=== PATIENT | female | born 1940 | race Caucasian/White ===

== ENCOUNTER 2020-12-13 11:23 | Day surgery (SDC) | payer MEDICARE, BC ==
[2020-12-13] VITALS (259 sets, daily range): BP systolic 112–184; BP diastolic 53–79; PULSE 57–67; TEMP 97.8–98.7; O2SAT 94–100
[~2020-12-13] VITALS: Ht 157.5 cm; Wt 79.9 kg
[2020-12-13] MEDS ORDERED: PRESERVISION1 SGL PO (11:48)
[2020-12-13] MEDS ORDERED: LUTEIN20 M1 PO (11:49)
[2020-12-13] MEDS ORDERED: HCTZ 25MG TAB25 MG PO (11:49)
[2020-12-13] MEDS ORDERED: LEVOXYL0.1 MG PO (11:50)
[2020-12-13] MEDS ORDERED: CORDARONE200 MG/TAB PO (11:50)
[2020-12-13] MEDS ORDERED: TOPROL XL 25MG25 MG PO (11:51)
[2020-12-13] MEDS ORDERED: COUMADIN 2MG2 MG/TAB PO (11:52)
[2020-12-13] MEDS ORDERED: ZESTRIL 10MG10 MG PO (11:52)
[2020-12-13] MEDS ORDERED: B-121000 MCG PO (11:53)
[2020-12-13] MEDS ORDERED: AMBIEN 5MG TABLE5 MG PO (11:53)
[2020-12-13] MEDS ORDERED: D3-5050000 IU PO (11:54)
[2020-12-13 12:22] LABS: HEMATOCRIT 38.8 % (37.0-47.0); HEMOGLOBIN 12.8 g/dl (12.5-16.0); MEAN CELL VOLUME 97 fl (80.0-100.0); MEAN CORPUSCULAR HEMOGLOBIN 32 pg (27.0-31.0); MEAN CORPUSCULAR HGB CONC 33 g/dl (33.0-37.0); MEAN PLATELET VOLUME 9.6 fl (7.4-10.4); PLATELET COUNT 219 K/mm3 (130-400); RED BLOOD COUNT 3.99 M/mm3 (4.10-5.30); REDCELL DISTRIBUTION WIDTH-CV 12.9 % (11.5-14.5)
[2020-12-13 12:30] LABS: INR 1.3 (0.8-3.0)
[2020-12-13 12:32] LABS: PARTIAL THROMBOPLASTIN TIME 30.9 SECONDS (26.0-37.0)
--- NOTE | 2020-12-13 12:51 | NUR ---
SEE MERGE FOR ALL MEDICATION ADMINISTRATION TIMES AND DOSAGES.INTRA\POST SEDATION ASSESSMENT.
--- NOTE | 2020-12-13 19:42 | NUR ---
RESTING COMFORT ABLE IN BED/ DENIES PAIN/ HAS NO COMPLAINTS
--- NOTE | 2020-12-13 20:09 | NUR ---
VERY PLEASENT/ DENIES DISCOMFORT, SMILES/
[2020-12-14] VITALS (333 sets, daily range): BP systolic 119–133; BP diastolic 58–66; PULSE 52–64; TEMP 97.4–98.4; O2SAT 94–100
[2020-12-14 05:15] LABS: BASO # 0.1 K/mm3 (0.0-0.2); BASO % 0.6 % (0.0-2.0); EOS # 0.2 K/mm3 (0.0-0.7); EOS % 2.2 % (0-4.0); GRAN # 4.8 K/mm3 (1.4-6.5); GRAN % 61.8 % (42.2-75.2); HEMATOCRIT 38.9 % (37.0-47.0); HEMOGLOBIN 13.2 g/dl (12.5-16.0); LYMPH % 25.8 % (20.0-51.0); MEAN CELL VOLUME 96 fl (80.0-100.0); MEAN CORPUSCULAR HEMOGLOBIN 33 pg (27.0-31.0); MEAN CORPUSCULAR HGB CONC 34 g/dl (33.0-37.0); MEAN PLATELET VOLUME 9.3 fl (7.4-10.4); MONO # 0.7 K/mm3 (0.1-0.6); MONO % 9.2 % (1.7-9.3); PLATELET COUNT 210 K/mm3 (130-400); RED BLOOD COUNT 4.04 M/mm3 (4.10-5.30); REDCELL DISTRIBUTION WIDTH-CV 12.7 % (11.5-14.5)
[2020-12-14 05:32] LABS: CALCIUM 9.9 mg/dL (8.4-10.2); CREATININE, serum 0.91 mg/dL (0.57-1.11); POTASSIUM 3.6 mmol/L (3.5-4.5)
--- NOTE | 2020-12-14 07:20 | NUR ---
RECEIVED REPORT FROM NAHOMY DOZIER. PT UP TO TOILET BY SELF. STEADY GAIT NOTED. PT ON RA, DENIES ANY CP/PRESSURE. VSS. PT REPOSITIONS SELF BACK INTO BED. CALL LIGHT WITHIN REACH. SEE GTT FLOWSHEET.
--- NOTE | 2020-12-14 09:20 | NUR ---
Filter Filler met with patient to complete initial intake. Patient lives in [facility] ([place]) with her , Constantin who she reports has dementia. Patient sees Dr. Maguire for primary care and obtains medications from [facility] pharmacy with no difficulties. Patient does not use any DME and is independent with ADLS. Patient reports she has a will at home. Patient has her children Tegan (ph#[phone]) and Nav (ph#[phone]) listed as her contacts. Patient plans to return home upon discharge. Discharge Plan: Home
[2020-12-14] MEDS ORDERED: LIPITOR 40MG TA40 MG PO (10:45)
[2020-12-14] MEDS ORDERED: BRILINTA90 MG PO (10:45)
[2020-12-14] MEDS ORDERED: ASPIRIN E.C. 8181 MG PO (10:46)
[2020-12-19 16:02] VITALS: BP 128/66; PULSE 52; TEMP 98
== END 2020-12-14 11:34 | disposition home or self-care (01) ==
LOC: COL.CAR 11:23 → ICU 15:29 → COL.CAR 12-14 11:34
PROVIDERS: Internal Medicine Cardiovascular Disease
DX: I25.110 Atherosclerotic heart disease of native coronary artery with unstable angina pectoris (principal); I11.9 Hypertensive heart disease without heart failure; I48.0 Paroxysmal atrial fibrillation; I08.1 Rheumatic disorders of both mitral and tricuspid valves; E78.2 Mixed hyperlipidemia; E03.9 Hypothyroidism, unspecified; Z79.890 Hormone replacement therapy; Z79.899 Other long term (current) drug therapy; Z79.01 Long term (current) use of anticoagulants
CPT/HCPCS: OP; C1725; C1769; C1874; C1887; C9600; J0360; J1644; J2250; J3010; J7050; Q9967

== ENCOUNTER 2022-04-25 21:08 | Inpatient (IN) | payer MEDICARE, BC ==
[~2022-04-25] VITALS: Ht 154.9 cm; Wt 83.5 kg
[~2022-04-25 21:08] MED LIST: AMBIEN 5MG TABLE5 MG PO; ASPIRIN E.C. 8181 MG PO; B-121000 MCG PO; BRILINTA90 MG PO; CORDARONE200 MG/TAB PO; COUMADIN 2MG2 MG/TAB PO; D3-5050000 IU PO; HCTZ 25MG TAB25 MG PO; LEVOXYL0.1 MG PO; LIPITOR 40MG TA40 MG PO; LUTEIN20 M1 PO; PRESERVISION1 SGL PO; TOPROL XL 25MG25 MG PO; ZESTRIL 10MG10 MG PO
[2022-04-25] MEDS ORDERED: HCTZ12.5TAB PO (21:10)
[2022-04-25] MEDS ORDERED: PLAVIX 75MG TAB75 MG PO (21:10)
[2022-04-25] MEDS ORDERED: NORVASC 5MG5 MG/TAB PO (21:11)
[2022-04-25] MEDS ORDERED: SYNTHROID0.1 MG/TAB PO (21:11)
[2022-04-25] MEDS ORDERED: PRINIVIL20 MG PO (21:11)
[2022-04-25] MEDS ORDERED: VITAMIN D 50,1.25 MG PO (21:11)
--- NOTE | 2022-04-25 22:51 | NUR ---
pt admitted to room. arrived by personal vehicle w daughter. ambulated from wheelchair to bed, steady gait. called blaine to notify of pts arrival.
[2022-04-25 22:53] VITALS: BP 146/59; PULSE 67; TEMP 98.1
[2022-04-26] VITALS (17 sets, daily range): BP systolic 102–143; BP diastolic 40–70; PULSE 58–70; TEMP 97.5–99.5
[2022-04-26 00:24] LABS: COLLECTION METHOD CLEAN CATCH
[2022-04-26 00:36] LABS: SQUAMOUS EPITHELIAL 0-2 /hpf (0-10); URINE APPEARANCE Clear (CLEAR/HAZY); URINE BACTERIA None Seen /hpf (NONE SEEN); URINE COLOR Yellow (YELLOW); URINE RBC 0-2 /hpf (0-2)
[2022-04-26 00:38] LABS: PH 6.5 (5.0-8.5); URINE BLOOD Negative (NEGATIVE); URINE GLUCOSE Negative (NEGATIVE); URINE KETONE Negative (NEGATIVE); URINE NITRATE Negative (NEGATIVE); URINE PROTEIN(semi-quant) Negative (NEGATIVE); URINE UROBILINOGEN 0.2 E.U/dL (0.2-1.0)
--- NOTE | 2022-04-26 00:50 | NUR ---
pt down for ct scan w Moise
--- NOTE | 2022-04-26 02:00 | NUR ---
blood transfusion started. vss.
--- NOTE | 2022-04-26 02:17 | NUR ---
pt tolerated first 15 minutes of transfusion
--- NOTE | 2022-04-26 04:45 | NUR ---
pt tolerated blood transfusion without difficulty. order placed to recheck H&H in one hour
[2022-04-26 06:37] LABS: BASO # 0.1 K/mm3 (0.0-0.2); EOS # 0.2 K/mm3 (0.0-0.7); EOS % 2.6 % (0.0-4.0); GRAN % 65.8 % (42.2-75.2); LYMPH # 1.1 K/mm3 (1.2-3.4); LYMPH % 17.3 % (20.0-51.0); MEAN CELL VOLUME 93 fl (80.0-100.0); MEAN CORPUSCULAR HGB CONC 33 g/dl (33.0-37.0); MEAN PLATELET VOLUME 9.1 fl (7.4-10.4); MONO # 0.8 K/mm3 (0.1-0.6); MONO % 12.5 % (1.7-9.3); PLATELET COUNT 233 K/mm3 (130-400); RED BLOOD COUNT 2.77 M/mm3 (4.10-5.30); REDCELL DISTRIBUTION WIDTH-CV 15.5 % (11.5-14.5)
[2022-04-26 06:40] LABS: HEMATOCRIT 25.8 % (37.0-47.0); HEMOGLOBIN 8.5 g/dl (12.5-16.0); MEAN CORPUSCULAR HEMOGLOBIN 31 pg (27-31)
[2022-04-26 06:59] LABS: CALCIUM 8.5 mg/dL (8.4-10.2); CREATININE, serum 1.06 mg/dL (0.57-1.11); POTASSIUM 3.9 mmol/L (3.5-4.5)
--- NOTE | 2022-04-26 07:10 | NUR ---
called dr reynoso on consult. wants to keep pt npo and plans to do an EGD at 1530 today.
--- NOTE | 2022-04-26 07:12 | NUR ---
SCHEDULING CALLED. NO ANSWER. VOICEMAIL LEFT FOR CALL BACK, EXTENSION OF THIS RN LEFT.
--- NOTE | 2022-04-26 07:14 | NUR ---
RASHID CALLED AND INFORMED OF DR ARMANDO WANTING TO DO AN EGD FOR THIS PATIENT AT 1530 TODAY. RASHID NURSE STATED IT LOOKS LIKE THIS PATIETN IS ON THE BOARD FOR TODAY, HOWEVER TO CALL [phone] AND CONFIRM TIME WITH HEBERT.
--- NOTE | 2022-04-26 07:21 | NUR ---
Pt A&O X4. SHIFT ASSESSMENT PERFORMED. PITTING EDEMA NOTED IN BILATERAL LOWER EXTREMITIES. MURMUR NOTED ON AUSCULTATION OF HEART. OTHER VS WNL. NS @ 50 ML/HR IN LAC. BED IN LOWEST LOCKED POSIITON CALL LIGHT WITHIN REACH. NO FURTHER REQUESTS AT THIS TIME.
--- NOTE | 2022-04-26 07:30 | NUR ---
PATIENT AWAKE AD ALERT,R ESTIGN IN BED, DAUGHTER AT BEDSIDE. ASSESSMENT COMPLETE. IVF INFUSING, LEFT AC IV PATENT. PATIENT DENIES ANY NEEDS OR COMPLAINTS AT THIS TIME. BED ALARM ON. PATIENT AWARE OF NPO ORDER AND MEANING. PATIENT AND DAUGHTER UPDATED ON PLAN FOR TODAY. CALL LIGHT WITHIN REACH.
--- NOTE | 2022-04-26 08:05 | NUR ---
HEBERT FROM SCHEDULING CALLED BACK, INFORMED HER OD DR SHI WOULD LIKE TO ADD THIS PATIENT ON TO HIS SCHEDULE 1529. PER HEBERT SHE WILL ADD THAT IN.
--- NOTE | 2022-04-26 08:59 | NUR ---
GIOVANNI met with the patient and her daughter (Tegan, ph#[phone]) and son (Roly) to discuss discharge plan. The patient lives alone in [place]. Roly lives across the street from her. She reports independence with ADLs and does not have any DME. The patient's PCP is Dr. Valdemar Maguire and she receives her medications from [facility]. The patient does not have a DPOA-HC in EMR, but she states that she does have one completed and that it designates her oldest son, Kushal. She shares that she is and has four children: Kushal, Nav, Roly, and Tegan. The patient plans to return home upon discharge. The patient and her children had no concerns for SW. No additional needs at this time. *Discharge plan: home*
--- NOTE | 2022-04-26 09:31 | NUR ---
Initial visit; Patient, her daughter and son thanked Luncheonette Manager for looking in on her and offering encouragement and God's blessings. Patient was receptive to Luncheonette Manager keeping her in her prayers.
--- NOTE | 2022-04-26 11:00 | NUR ---
Pt COMPLAINS OF PAIN IN LEFT HEEL. LEFT HEEL AND SOLE OF FOOT FOUND TO BE BOGGY WITH BLANCHABLE REDNESS. RIGHT HEEL ALSO FOUND TO BE BOGGY, TO A LESSER DEGREE. A SMALL CRACK WAS ALSO NOTED IN THE RIGHT HEEL. HEEL PROTECTOR BOOTS APPLIED, NAHOMY MULLEN NOTIFIED.
--- NOTE | 2022-04-26 11:58 | NUR ---
PATIENTS CONSENT SIGNED AND ON THE CHART.
--- NOTE | 2022-04-26 15:42 | NUR ---
RECIEVED CALL FROM MD THAT EKG ORDERED LAST NIGHT NOT COMPLETED. RT GEORGES CALLED AND IS COMING TO DO EKG
[2022-04-26 16:00] LABS: HEMATOCRIT 27.1 % (37.0-47.0); HEMOGLOBIN 8.8 g/dl (12.5-16.0)
--- NOTE | 2022-04-26 16:29 | NUR ---
PATIENT TAKEN BY ENDO NURSE MAYRA FOR PRE OP.
--- NOTE | 2022-04-26 20:00 | NUR ---
PT RESTING IN BED A&OX4. DAUGHTER AT BEDSIDE. VERY SUPPORTIVE. PT C/O FRONTAL [place] TO RT JAW. VSS. PT REPORTS DISSFICULT TO OPEN MOUTH. DENIES CARDIAC COMPLAINTS. NOTIFIED KENDY LIM. SEE NEW ORDER. PT DENIES NAUSEA OR ABD PAIN. NO BMS. CALL LIGHT IN REACH.
[2022-04-26 21:58] LABS: HEMATOCRIT 24.3 % (37.0-47.0); HEMOGLOBIN 7.9 g/dl (12.5-16.0)
[2022-04-27 03:34] VITALS: BP 100/42; PULSE 58; TEMP 98.3
[2022-04-27 03:47] LABS: BASO # 0.1 K/mm3 (0.0-0.2); BASO % 0.7 % (0.0-2.0); EOS # 0.2 K/mm3 (0.0-0.7); EOS % 2.2 % (0.0-4.0); GRAN # 4.9 K/mm3 (1.4-6.5); GRAN % 65.7 % (42.2-75.2); LYMPH # 1.3 K/mm3 (1.2-3.4); MEAN CELL VOLUME 95 fl (80.0-100.0); MEAN CORPUSCULAR HGB CONC 32 g/dl (33.0-37.0); MEAN PLATELET VOLUME 8.8 fl (7.4-10.4); PLATELET COUNT 207 K/mm3 (130-400); RED BLOOD COUNT 2.48 M/mm3 (4.10-5.30); REDCELL DISTRIBUTION WIDTH-CV 16.2 % (11.5-14.5)
[2022-04-27 03:49] LABS: HEMATOCRIT 23.6 % (37.0-47.0); HEMOGLOBIN 7.6 g/dl (12.5-16.0); MEAN CORPUSCULAR HEMOGLOBIN 31 pg (27-31)
[2022-04-27 04:05] LABS: CALCIUM 8.4 mg/dL (8.4-10.2); CREATININE, serum 1.07 mg/dL (0.57-1.11)
--- NOTE | 2022-04-27 05:41 | NUR ---
PT RESTING. WAKES EASILY. PT DENIES ANY FURTHER HEADACHE. NO BM'S THIS SHIFT. NO ABD PAIN. HBG 7.6. NOTIFIED KENDY LIM OF RESULT.
[2022-04-27 07:34] VITALS: BP 136/63; PULSE 60; TEMP 97.6
--- NOTE | 2022-04-27 08:00 | NUR ---
PATIENT AWAKE AND ALERT, RESTING IN BED. CALL LIGHT WITH IN REACH. BED ALARM ON.
[2022-04-27 09:50] LABS: HEMATOCRIT 26.9 % (37.0-47.0); HEMOGLOBIN 8.6 g/dl (12.5-16.0)
[2022-04-27 12:05] VITALS: BP 121/43; PULSE 59; TEMP 98
[2022-04-27 15:34] LABS: HEMATOCRIT 26.1 % (37.0-47.0); HEMOGLOBIN 8.3 g/dl (12.5-16.0)
[2022-04-27 15:38] VITALS: BP 117/40; PULSE 61; TEMP 97.3
[2022-04-27] MEDS ORDERED: PROTONIX 40MG T40 MG PO (16:25)
--- NOTE | 2022-04-27 17:15 | NUR ---
PATIENT GIVEN DISCHARGE INSTRUCTIONS AND EDUCAITON. PATIENT AWARE OF FOLLOW UP APTS AND IS AWARE TO GALL GI ON FRIDAY FOR FOLLOW UP APT IF SHE DOES NOT RECIEVE A CALL. IV AND TELE DISCONTINUED
--- NOTE | 2022-04-27 17:50 | NUR ---
LAINA TAKEN TO ER ENTRANCE VIA WHEELCHAIR BY PCT. LAINA LEFT IN STABLE CONDITION WITH HER DAUGHTER.
== END 2022-04-27 17:56 | disposition home or self-care (01) | DRG 378 ==
LOC: SURG 21:08
PROVIDERS: Hospitalist; Internal Medicine Gastroenterology; Nurse Practitioner Family; ADMIT Internal Medicine
PROC: 30233N1 Transfusion of Nonautologous Red Blood Cells into Peripheral Vein, Percutaneous Approach (ICD-10-PCS; principal; 2022-04-26 15:30)
DX: K92.1 Melena (principal); D62 Acute posthemorrhagic anemia; J90 Pleural effusion, not elsewhere classified; Z66 Do not resuscitate; E03.9 Hypothyroidism, unspecified; I25.10 Atherosclerotic heart disease of native coronary artery without angina pectoris; I48.91 Unspecified atrial fibrillation; E78.5 Hyperlipidemia, unspecified; I10 Essential (primary) hypertension; Z95.5 Presence of coronary angioplasty implant and graft; Z79.02 Long term (current) use of antithrombotics/antiplatelets; Z79.890 Hormone replacement therapy; Z23 Encounter for immunization; Z88.6 Allergy status to analgesic agent; Z88.5 Allergy status to narcotic agent; Z88.8 Allergy status to other drugs, medicaments and biological substances
CPT/HCPCS: C9113; J1940; J7030; P9016; Q9967